=== PATIENT | female | born 1990 | race Caucasian/White ===

== ENCOUNTER 2017-02-07 13:06 | Day surgery (SDC) | payer OTHER ==
[~2017-02-07 13:06] MED LIST: BIOTIN5 MG PO; ELIQUIS 2.5 MG2.5 MG PO; NORV5 PO; OTC IRON PO; PLAQ200B PO
[2017-02-07 13:44] LABS: MEAN CORPUS HGB CONC 35.1 g/dL (32.0-36.0); MEAN CORPUSCULAR HEMOGLOB 28.5 pg (26.0-34.0); RED CELL COUNT 3.68 10/6/uL (4.0-5.6); RETICULOCYTE COUNT 1.1 % (0.5-2.5)
[2017-02-07 13:46] LABS: HEMATOCRIT 29.9 % (36.0-48.0); HEMOGLOBIN 10.5 g/dL (12.0-16.0); MANUAL DIFF YES %; MEAN CORPUSCULAR VOLUME 81.3 fL (80-100); PLATELET COUNT 42 10/3/uL (150-400); WHITE BLOOD CELLS 1.4 10/3/uL (4.5-10.5)
[2017-02-07 14:12] LABS: LYMPHOCYTES 63 %; LYMPHOCYTES ABSOLUTE (CALC) 0.88 10/3/uL (0.67-4.30); MONOCYTES 34 %; MONOCYTES ABSOLUTE (CALC) 0.48 10/3/uL (0.21-1.20); NEUTROPHILS ABSOLUTE (CALC) 0.04 10/3/uL (2.02-8.40); SEGMENTED NEUTROPHIL (0) 3 %; TEARDROP SHAPED RBCS OCC (0-2/OIF); TOTAL NUCLEATED CELLS 100
== END 2017-02-07 16:27 | disposition home or self-care (01) ==
LOC: SDC 13:06
PROVIDERS: Internal Medicine Hematology & Oncology; Pathology Cytopathology
PROC: 07DR3ZX Extraction of Iliac Bone Marrow, Percutaneous Approach, Diagnostic (ICD-10-PCS; principal; 2017-02-07 15:30)
DX: D72.820 Lymphocytosis (symptomatic) (principal); D69.6 Thrombocytopenia, unspecified; L93.0 Discoid lupus erythematosus; D61.818 Other pancytopenia; D70.9 Neutropenia, unspecified; I10 Essential (primary) hypertension; Z88.8 Allergy status to other drugs, medicaments and biological substances; Z88.2 Allergy status to sulfonamides; Z79.899 Other long term (current) drug therapy
CPT/HCPCS: 36415; 84703; 85025; 85045; 88305; 88311; 88313; 88341; 88342; 88360; 88367; J2250; J3010